=== PATIENT | male | born 1945 | race Caucasian/White ===

== ENCOUNTER 2022-05-23 08:57 | Observation (INO) ==
[2022-05-23 10:33] LABS: Bacteria,Urine Few per hpf (None-Few); Bilirubin,Urine Negative (Negative); Blood,Urine Negative (Negative); Clarity,Urine Clear (Clear); Color,Urine Light-Yellow (Yellow); Glucose,Urine (UA) Normal (Normal); Ketones,Urine Negative (Negative); Leukocyte Esterase,Urine Trace (Negative); Nitrite,Urine Negative (Negative); PH,Urine 5.5 pH Units (5.0-8.0); Protein,Urine Negative (Neg-Trace); RBC,Urine 0-3 per hpf (0-3); Specific Gravity,Urine 1.017 (1.010-1.025); Squamous Epithelial Cell,Urine Few per hpf (None-Few); Urobilinogen,Urine Normal (Normal); WBC,Urine 0-3 per hpf (0-3)
[2022-05-23 11:12] LABS: Basophils # 0.1 K/mcL (0.0-0.2); Basophils % 0.8 %; Eosinophils # 0.2 K/mcL (0.0-0.6); Hematocrit 38.2 % (37.5-50.1); Hemoglobin 12.6 g/dL (12.9-16.9); Immature Granulocytes % 0.4 % (0-4); Lymphocytes # 1.3 K/mcL (0.6-4.6); Lymphocytes % 11.1 %; Mean Corpuscular Hemoglobin 29.1 pg (28.0-33.3); Mean Corpuscular Volume 88.2 fL (83.0-100.0); Mean Platelet Volume 10.7 fL (9.4-12.4); Monocytes # 0.8 K/mcL (0.0-1.3); Monocytes % 6.7 %; Neutrophils # 9.3 K/mcL (1.6-8.9); Platelet Count 229 K/mcL (140-400); Red Blood Count 4.33 M/mcL (4.19-5.50); Red Cell Distribution Width 15.5 % (11.5-14.5); White Blood Count 11.8 K/mcL (4.3-11.1)
[2022-05-23 11:32] LABS: Alanine Aminotransferase 14 Units/L (7-52); Albumin/Globulin Ratio 1.4 (1.1-2.2); Alkaline Phosphatase 63 Units/L (34-104); Amylase 45 Units/L (29-103); Aspartate Amino Transferase 11 Units/L (13-39); BUN/Creatinine Ratio 13 (6-26); Bilirubin,Direct 0.1 mg/dL (0.0-0.2); Bilirubin,Indirect 0.6 mg/dL (0.0-1.0); Bilirubin,Total 0.7 mg/dL (0.3-1.0); Blood Urea Nitrogen 13 mg/dL (8-23); Calcium 9.3 mg/dL (8.6-10.3); Carbon Dioxide 29 mEq/L (23-29); Chloride 107 mEq/L (98-107); Globulin 2.8 g/dL (2.4-3.5); Glucose 118 mg/dL (70-105); Lipase 17 Units/L (11-82); Osmolality,Calculated 291 (280-300); Sodium 140 mEq/L (136-145); Total Protein 6.8 g/dL (6.4-8.9); eGFR For African Americans > 60 (> 60); eGFR For Non-African Americans > 60 (> 60)
[2022-05-23] MEDS ORDERED: Piperacillin/Tazobactam 3.375 GM in 0.9 % Sodium Chloride Mini Bag 100 ML IVPB ONE (13:19)
[2022-05-23] MEDS ORDERED: GI Cocktail 40 ML EACH PO ONE (13:41)
[2022-05-23] MEDS ORDERED: Ondansetron 4 MG/2 ML VIAL IVP PRN ×2 (14:07→20:27)
[2022-05-23] MEDS ORDERED: Naloxone 0.4 MG/ML INJ IVP PRN (14:07)
[2022-05-23] MEDS ORDERED: 0.9 % Sodium Chloride 1,000 ML IVC SCH (14:30)
[2022-05-23] MEDS ORDERED: *HR* FentaNYL (PF) 100 MCG/2 ML VIAL IVP PRN (20:27)
[2022-05-23] MEDS ORDERED: *HR* Rocuronium Bromide 50 MG/5 ML VIAL ONE ×2 (20:39→21:19)
[2022-05-23] MEDS ORDERED: Lidocaine -MPF 4% 5 ML AMPUL ONE (20:39)
[2022-05-23] MEDS ORDERED: Lidocaine -MPF 2% 5 ML VIAL ONE (20:39)
[2022-05-23] MEDS ORDERED: *HR* Propofol 200 MG/20 ML VIAL IVP ONE (20:40)
[2022-05-23] MEDS: Piperacillin/Tazobactam 3.375 GM in 0.9 % Sodium Chloride Mini Bag 100 ML IVPB SCH (21:10)
[2022-05-23] MEDS ORDERED: *HR* Magnesium Sulfate 1 GM/2 ML VIAL ONE (21:18)
[2022-05-23] MEDS ORDERED: Acetaminophen IV 1,000 MG/100 ML BAG IVPB ONE ×2 (22:07→22:12)
[2022-05-23] MEDS ORDERED: *HR* FentaNYL (PF) 100 MCG/2 ML VIAL ONE (22:42)
[2022-05-24] MEDS: Piperacillin/Tazobactam 3.375 GM in 0.9 % Sodium Chloride Mini Bag 100 ML IVPB SCH (05:50)
[2022-05-24 07:07] VITALS: PULSE 60
[2022-05-24 07:43] LABS: Basophils % 0.2 %; Hemoglobin 12.1 g/dL (12.9-16.9); Immature Granulocytes % 0.6 % (0-4); Lymphocytes # 0.8 K/mcL (0.6-4.6); Lymphocytes % 7.2 %; Mean Corpuscular HGB Conc 32.7 g/dL (31.6-35.5); Mean Corpuscular Hemoglobin 29.6 pg (28.0-33.3); Mean Corpuscular Volume 90.5 fL (83.0-100.0); Mean Platelet Volume 11.1 fL (9.4-12.4); Monocytes # 0.5 K/mcL (0.0-1.3); Monocytes % 4.3 %; Platelet Count 220 K/mcL (140-400); Red Blood Count 4.09 M/mcL (4.19-5.50); Red Cell Distribution Width 15.4 % (11.5-14.5); Segmented Neutrophils % 87.7 %; White Blood Count 11.4 K/mcL (4.3-11.1)
[2022-05-24 09:36] LABS: BUN/Creatinine Ratio 11 (6-26); Blood Urea Nitrogen 12 mg/dL (8-23); Calcium 8.6 mg/dL (8.6-10.3); Carbon Dioxide 28 mEq/L (23-29); Chloride 105 mEq/L (98-107); Glucose 126 mg/dL (70-105); Osmolality,Calculated 285 (280-300); Potassium 4.2 mEq/L (3.5-5.1); Sodium 137 mEq/L (136-145); eGFR For African Americans > 60 (> 60); eGFR For Non-African Americans > 60 (> 60)
[2022-05-24 10:39] VITALS: BP 109/64; TEMP 98.5; O2SAT 91
== END 2022-05-24 14:20 | disposition home or self-care (01) ==
LOC: 3ANU 08:57 → EMEROOARM 08:57 → SUATTDRO 13:54 → 3ANU 15:36
PROVIDERS: ADMIT Internal Medicine; ATTEND Internal Medicine

== ENCOUNTER 2022-08-03 19:42 | Observation (INO) ==
[2022-08-03 20:52] LABS: Basophils # 0.1 K/mcL (0.0-0.2); Basophils % 1.1 %; Eosinophils # 0.5 K/mcL (0.0-0.6); Eosinophils % 6.5 %; Hematocrit 37.3 % (37.5-50.1); Hemoglobin 12.3 g/dL (12.9-16.9); Immature Granulocytes % 1.1 % (0-4); Lymphocytes # 1.8 K/mcL (0.6-4.6); Lymphocytes % 24.1 %; Mean Corpuscular Hemoglobin 28.9 pg (28.0-33.3); Mean Corpuscular Volume 87.6 fL (83.0-100.0); Mean Platelet Volume 10.5 fL (9.4-12.4); Monocytes # 0.5 K/mcL (0.0-1.3); Monocytes % 6.5 %; Neutrophils # 4.5 K/mcL (1.6-8.9); Platelet Count 237 K/mcL (140-400); Red Blood Count 4.26 M/mcL (4.19-5.50); Red Cell Distribution Width 15.2 % (11.5-14.5); Segmented Neutrophils % 60.7 %; White Blood Count 7.4 K/mcL (4.3-11.1)
[2022-08-03 21:13] LABS: Calcium 9.2 mg/dL (8.6-10.3); Potassium 3.9 mEq/L (3.5-5.1)
[2022-08-03 21:20] LABS: Troponin I 0.11 ng/mL (< 0.04)
[2022-08-03] MEDS ORDERED: Iopamidol - 370 500 ML MLS IVP ONE (23:40)
[2022-08-04] MEDS ORDERED: Naloxone 0.4 MG/ML INJ IVP PRN (00:53)
[2022-08-04] MEDS ORDERED: Melatonin 3 MG TABLET PO PRN (00:53)
[2022-08-04] MEDS ORDERED: Ondansetron ODT 4 MG TAB.RAPDIS SL PRN (00:53)
[2022-08-04 02:21] VITALS: O2SAT 95
[2022-08-04] MEDS: GuaiFENesin Liq 200 MG/10 ML UDC PO PRN ×2 (03:08→09:08)
[2022-08-04 04:06] LABS: Adenovirus Not Detected (Not Detect); Coronavirus 229E Not Detected (Not Detect); Coronavirus HKU1 Not Detected (Not Detect); Coronavirus NL63 Not Detected (Not Detect); Coronavirus OC43 Not Detected (Not Detect)
[2022-08-04 04:07] LABS: Bordetella Pertussis Not Detected (Not Detect); Chlamydophila pneumoniae Not Detected (Not Detect); Human Metapneumovirus Not Detected (Not Detect); Human Rhinovirus/Enterovirus Not Detected (Not Detect); Influenza A Subtype 2009 H1 Not Detected (Not Detect); Influenza B Not Detected (Not Detect); Mycoplasma pneumoniae Not Detected (Not Detect); Parainfluenza Virus 1 Not Detected (Not Detect); Parainfluenza Virus 2 Not Detected (Not Detect); Parainfluenza Virus 3 Not Detected (Not Detect); Parainfluenza Virus 4 Not Detected (Not Detect); Respiratory Syncytial Virus Not Detected (Not Detect); SARS-CoV-2 DETECTED (Not Detect)
[2022-08-04] MEDS ORDERED: *HR* Dextrose 50 % in Water (Syg) 50 ML SYRINGE IVP PRN (05:28)
[2022-08-04] MEDS ORDERED: D5% in Water 1,000 ML IVC PRN (05:28)
[2022-08-04] MEDS ORDERED: Dextrose Gel 15 GM/37.5 ML TUBE PO PRN ×2 (05:28)
[2022-08-04 06:09] LABS: Hematocrit 36.8 % (37.5-50.1); Hemoglobin 12.3 g/dL (12.9-16.9); Mean Corpuscular HGB Conc 33.4 g/dL (31.6-35.5); Mean Corpuscular Hemoglobin 28.9 pg (28.0-33.3); Mean Corpuscular Volume 86.6 fL (83.0-100.0); Mean Platelet Volume 9.9 fL (9.4-12.4); Platelet Count 220 K/mcL (140-400); Red Blood Count 4.25 M/mcL (4.19-5.50); Red Cell Distribution Width 15.2 % (11.5-14.5); White Blood Count 7.4 K/mcL (4.3-11.1)
[2022-08-04 06:30] LABS: Calcium 9.2 mg/dL (8.6-10.3); Chol/HDL Ratio 3.9 (0-4.9); Magnesium 1.9 mg/dL (1.6-2.6); Phosphorous 3.2 mg/dL (2.7-4.5); Potassium 3.8 mEq/L (3.5-5.1)
[2022-08-04 06:36] LABS: Bilirubin,Urine Negative (Negative); Blood,Urine Negative (Negative); Clarity,Urine Clear (Clear); Color,Urine Colorless (Yellow); Glucose,Urine (UA) Normal (Normal); Ketones,Urine Negative (Negative); Leukocyte Esterase,Urine Negative (Negative); Nitrite,Urine Negative (Negative); Protein,Urine Negative (Neg-Trace); Specific Gravity,Urine > 1.030 (1.010-1.025); Urobilinogen,Urine Normal (Normal)
[2022-08-04 06:42] LABS: Thyroid Stimulating Hormone 7.565 mcIU/mL (0.340-5.600)
[2022-08-04 07:02] VITALS: BP 108/58; PULSE 54; TEMP 97.7
[2022-08-04] MEDS ORDERED: Aspirin 81 MG TAB.CHEW PO SCH (09:00)
[2022-08-04 11:56] LABS: Estimated Average Glucose 111 mg/dl; Hemoglobin A1C 5.5 %
[2022-08-04 16:33] LABS: Amphetamine Screen,Urine Negative ng/mL (Cutoff=1000); Barbiturate Screen,Urine Negative ng/mL (Cutoff=200); Benzodiazepines Screen,Urine Negative ng/mL (Cutoff=200); Cannabinoid Screen,Urine Negative ng/mL (Cutoff = 50); Cocaine Screen,Urine Negative ng/mL (Cutoff= 300); Opiate Screen,Urine Negative ng/mL (Cutoff=300); Phencyclidine Screen,Urine Negative ng/mL (Cutoff=25)
== END 2022-08-04 11:51 | disposition home or self-care (01) ==
LOC: EMEROOARM 19:42 → 3BNU 19:42 → SUATTDRO 08-04 00:53 → 3BNU 08-04 01:42
PROVIDERS: ADMIT Internal Medicine; ATTEND Registered Nurse